=== PATIENT | male | born 1965 | race Caucasian/White ===

== ENCOUNTER 2022-02-08 07:12 | Emergency (ER) | payer OTHER ==
[~2022-02-08] VITALS: Ht 172.7 cm; Wt 72.6 kg
[2022-02-08] MEDS ORDERED: NASAL MIST126 ML (07:21)
[2022-02-08] MEDS ORDERED: PROTONIX20 MG PO (07:21)
[2022-02-08] MEDS ORDERED: PEPCID AC10 MG (07:21)
[2022-02-08] MEDS ORDERED: DICY20TA PO (08:37)
[2022-02-08] MEDS ORDERED: INTESTINEX680 M1 PO (08:37)
[2022-02-08] MEDS ORDERED: SIMETHICONE80 MG PO (08:41)
== END 2022-02-08 08:46 | disposition home or self-care (01) ==
LOC: ER 07:12
DX: R14.0 Abdominal distension (gaseous) (principal); Z88.0 Allergy status to penicillin; Z88.2 Allergy status to sulfonamides